=== PATIENT | male | born 1940 | race Caucasian/White ===

== ENCOUNTER 2023-04-26 12:50 | Inpatient (IN) | payer OTHER ==
[~2023-04-26] VITALS: Ht 172.7 cm; Wt 81.6 kg
[2023-04-26 12:50] VITALS: BP_SYST 144; PULSE 124; RESP 24; TEMP 102.1; O2SAT 93
[2023-04-26 13:31] LABS: ABG O2 SAT% ESTIMATE 98.6 % (94.0-100.0); BLOOD GAS HCO3 24.1 mmol/L (21.0-27.0); BLOOD GAS PCO2 30.9 mmHg (32.0-45.0); BLOOD GAS PO2 55.9 mmHg (75.0-100.0)
[2023-04-26 13:32] LABS: ALLEN'S TEST POSITIVE (P)
[2023-04-26 13:41] LABS: BASOPHILS % (AUTO) 0.1 % (0.0-2.0); HEMATOCRIT 35.3 % (36-54); HEMOGLOBIN 11.8 g/dL (14.0-18.0); LYMPHOCYTES # (AUTO) 0.3 K/uL (1.0-5.5); LYMPHOCYTES % (AUTO) 1.8 % (20.5-51.5); MEAN CORPUSCULAR HEMOGLOBIN 29 pg (27-31); MEAN CORPUSCULAR HGB CONC 33 % (32-36); MEAN CORPUSCULAR VOLUME 88 fL (79.0-98.0); MONOCYTES # (AUTO) 0.6 K/uL (0.0-1.0); MONOCYTES % (AUTO) 3.8 % (1.7-9.3); NEUTROPHILS # (AUTO) 15.3 K/uL (1.8-7.7); NEUTROPHILS % (AUTO) 94.3 % (40.0-70.0); PLATELET COUNT (AUTO) 212 K/uL (130-430); RED BLOOD CELL COUNT(AUTO) 4.03 MIL/uL (4.2-6.2); RED CELL DISTRIBUTION WIDTH 13.3 % (9.0-15.0); WHITE BLOOD COUNT (AUTO) 16.2 K/uL (4.8-10.8)
[2023-04-26 13:50] LABS: ANION GAP 11 (5-15); CALCIUM 8.8 mg/dL (8.4-11.0); CARBON DIOXIDE 24 mmol/L (23-29); CHLORIDE 103 mmol/L (98-107); CREATININE 1.37 mg/dL (0.55-1.30); GLUCOSE 159 mg/dL (74-106); POTASSIUM 3.4 mmol/L (3.5-5.1); SODIUM SERUM 138 mmol/L (136-145); UREA NITROGEN, BLOOD 15 mg/dL (8-21)
[2023-04-26 13:54] LABS: INR 1.1 (0.80-1.20); PROTHROMBIN TIME 11.1 SECS (9.5-12.5)
[2023-04-26 14:09] LABS: ALANINE AMINOTRANSFERASE 12 U/L (12-78); ALBUMIN 2.9 g/dL (3.4-4.8); ASPARTATE AMINOTRANSFERASE 14 U/L (10-37); BILIRUBIN,DIRECT 0.3 mg/dL (0.0-0.3); FREE T4 (FREE THYROXINE) 0.8 ng/dL (0.6-1.6); THYROID STIMULATING HORMONE 0.65 uIu/mL (0.34-4.82); TOTAL BILIRUBIN 0.8 mg/dL (0.0-1.0)
[2023-04-26] MEDS: NACL 0.9% 1,000 ML IV ONE (15:00)
[2023-04-26 15:33] LABS: BILIRUBIN,URINE NEGATIVE (NEGATIVE); BLOOD, URINE 2+ (NEGATIVE); CLARITY/URINE CLOUDY (CLEAR); COLOR,URINE YELLOW (YELLOW); GLUCOSE,URINE NEGATIVE (NEGATIVE); KETONES,URINE 1+ (NEGATIVE); LEUKOCYTE ESTERASE ,URINE TRACE (NEGATIVE); NITRITE, URINE NEGATIVE (NEGATIVE); PROTEIN URINE 1+ (NEGATIVE)
[2023-04-26] MEDS: NACL 0.9% 1,000 ML IV SCH (16:00)
[2023-04-26 16:20] LABS: INFLUENZA TYPE A Negative (NEGATIVE); INFLUENZA TYPE B NEGATIVE (NEGATIVE)
[2023-04-26] MEDS ORDERED: IBUP-1971 PO (16:24)
[2023-04-26] MEDS ORDERED: ALBMDI INH (16:24)
[2023-04-26] MEDS ORDERED: LEVO750T64 PO (16:24)
[2023-04-26 16:26] LABS: BACTERIA,URINE FEW /HPF (None Seen); FINE GRANULAR CASTS,URINE 0-10 /LPF (None Seen)
[2023-04-26] MEDS ORDERED: HYDROcodone/ACETAMIN 5-325 MG TAB (NORCO/ VICODIN) PO PRN (16:30)
[2023-04-26] MEDS ORDERED: HYDROcodone/ACETAMIN 10-325 MG TAB PO PRN (16:30)
[2023-04-26] MEDS ORDERED: ONDANSETRON HCL 4 MG/2 ML VIAL IVP PRN (16:30)
[2023-04-26] MEDS ORDERED: MORPHINE 2 MG/ML INJ. SYRINGE IVP PRN (16:30)
[2023-04-26] MEDS: CLINDAMYCIN 600 mg/50mL D5W 50 ML IV ONE (16:34)
[2023-04-26] MEDS ORDERED: ACETAMINOPHEN 325 MG TABLET PO PRN (17:30)
[2023-04-26] MEDS: ACETAMINOPHEN 325 MG TABLET PO PRN (19:52)
[2023-04-26 22:52] VITALS: O2SAT 93
[2023-04-26 23:30] VITALS: BP_SYST 93; PULSE 66; RESP 18; TEMP 98.8; O2SAT 93
[2023-04-27] VITALS: BP_SYST 98; PULSE 59; RESP 16; TEMP 98.1; O2SAT 97
[2023-04-27 07:46] LABS: BASOPHILS % (AUTO) 0.1 % (0.0-2.0); EOSINOPHILS % (AUTO) 0.1 % (0.0-4.0); HEMATOCRIT 26.4 % (36-54); HEMOGLOBIN 8.8 g/dL (14.0-18.0); LYMPHOCYTES # (AUTO) 0.6 K/uL (1.0-5.5); LYMPHOCYTES % (AUTO) 3.5 % (20.5-51.5); MEAN CORPUSCULAR HEMOGLOBIN 29 pg (27-31); MEAN CORPUSCULAR HGB CONC 33 % (32-36); MEAN CORPUSCULAR VOLUME 88 fL (79.0-98.0); MONOCYTES # (AUTO) 1.3 K/uL (0.0-1.0); MONOCYTES % (AUTO) 7.4 % (1.7-9.3); NEUTROPHILS # (AUTO) 15.8 K/uL (1.8-7.7); NEUTROPHILS % (AUTO) 88.9 % (40.0-70.0); PLATELET COUNT (AUTO) 167 K/uL (130-430); RED BLOOD CELL COUNT(AUTO) 3.01 MIL/uL (4.2-6.2); RED CELL DISTRIBUTION WIDTH 13.5 % (9.0-15.0); WHITE BLOOD COUNT (AUTO) 17.7 K/uL (4.8-10.8)
[2023-04-27 08:00] VITALS: BP_SYST 137; PULSE 82; RESP 18; TEMP 98.9; O2SAT 96
[2023-04-27 08:01] LABS: ALANINE AMINOTRANSFERASE 9 U/L (12-78); ALBUMIN 1.7 g/dL (3.4-4.8); ANION GAP 10 (5-15); ASPARTATE AMINOTRANSFERASE 16 U/L (10-37); CARBON DIOXIDE 20 mmol/L (23-29); CHLORIDE 114 mmol/L (98-107); CREATININE 0.94 mg/dL (0.55-1.30); GLUCOSE 78 mg/dL (74-106); SODIUM SERUM 144 mmol/L (136-145); TOTAL BILIRUBIN 0.4 mg/dL (0.0-1.0); TOTAL PROTEIN, SERUM 4.5 g/dL (6.4-8.3); UREA NITROGEN, BLOOD 13 mg/dL (8-21)
[2023-04-27 08:15] VITALS: O2SAT 96
[2023-04-27 08:25] LABS: CALCIUM 6.2 mg/dL (8.4-11.0); POTASSIUM 2.6 mmol/L (3.5-5.1)
[2023-04-27] MEDS: CEFEPIME 1 GM in D5W 50 ML IV SCH (11:36)
[2023-04-27] MEDS: POTASSIUM CHLORIDE 40 MEQ, LIDOCAINE JECT 2% PF 100 MG 50 MG in NS 250 ML IV ONE (11:37)
[2023-04-27 13:46] LABS: ANION GAP 6 (5-15); CALCIUM 7.6 mg/dL (8.4-11.0); CARBON DIOXIDE 27 mmol/L (23-29); CHLORIDE 102 mmol/L (98-107); CREATININE 1.27 mg/dL (0.55-1.30); GLUCOSE 123 mg/dL (74-106); POTASSIUM 3.5 mmol/L (3.5-5.1); SODIUM SERUM 135 mmol/L (136-145); UREA NITROGEN, BLOOD 18 mg/dL (8-21)
[2023-04-27 16:00] VITALS: BP_SYST 122; PULSE 70; RESP 20; TEMP 97.9; O2SAT 95
[2023-04-27 20:20] VITALS: BP_SYST 121; PULSE 64; RESP 18; TEMP 98.4; O2SAT 94
[2023-04-27] MEDS: VANCOMYCIN HCL 1,000 MG in NS 250 ML IV SCH (22:04)
[2023-04-28 01:27] VITALS: BP_SYST 132; PULSE 70; RESP 18; TEMP 99.1; O2SAT 96
[2023-04-28 07:53] LABS: BASOPHILS % (AUTO) 0.1 % (0.0-2.0); EOSINOPHILS # (AUTO) 0.2 K/uL (0.0-0.4); EOSINOPHILS % (AUTO) 1.4 % (0.0-4.0); HEMATOCRIT 33.6 % (36-54); HEMOGLOBIN 11.2 g/dL (14.0-18.0); LYMPHOCYTES # (AUTO) 0.7 K/uL (1.0-5.5); LYMPHOCYTES % (AUTO) 5.2 % (20.5-51.5); MEAN CORPUSCULAR HEMOGLOBIN 29 pg (27-31); MEAN CORPUSCULAR HGB CONC 33 % (32-36); MEAN CORPUSCULAR VOLUME 87 fL (79.0-98.0); MONOCYTES # (AUTO) 1.3 K/uL (0.0-1.0); MONOCYTES % (AUTO) 10.3 % (1.7-9.3); NEUTROPHILS # (AUTO) 10.4 K/uL (1.8-7.7); PLATELET COUNT (AUTO) 223 K/uL (130-430); RED BLOOD CELL COUNT(AUTO) 3.86 MIL/uL (4.2-6.2); RED CELL DISTRIBUTION WIDTH 13.8 % (9.0-15.0); WHITE BLOOD COUNT (AUTO) 12.6 K/uL (4.8-10.8)
[2023-04-28 08:00] VITALS: BP_SYST 126; RESP 16; TEMP 99; O2SAT 95
[2023-04-28 08:13] LABS: ALANINE AMINOTRANSFERASE 14 U/L (12-78); ALBUMIN 2.2 g/dL (3.4-4.8); ANION GAP 9 (5-15); ASPARTATE AMINOTRANSFERASE 27 U/L (10-37); CALCIUM 7.7 mg/dL (8.4-11.0); CARBON DIOXIDE 23 mmol/L (23-29); CHLORIDE 105 mmol/L (98-107); GLUCOSE 98 mg/dL (74-106); POTASSIUM 3.3 mmol/L (3.5-5.1); SODIUM SERUM 137 mmol/L (136-145); TOTAL BILIRUBIN 0.4 mg/dL (0.0-1.0); TOTAL PROTEIN, SERUM 6.2 g/dL (6.4-8.3); UREA NITROGEN, BLOOD 13 mg/dL (8-21)
[2023-04-28 09:24] VITALS: O2SAT 95
[2023-04-28] MEDS ORDERED: SITA100T11 PO (11:37)
[2023-04-28] MEDS ORDERED: AMLO10TA88 PO (11:37)
[2023-04-28] MEDS ORDERED: IRBE300T40 PO (11:37)
[2023-04-28] MEDS ORDERED: METO25TA3 PO (11:37)
[2023-04-28] MEDS ORDERED: LIP40 PO (11:37)
[2023-04-28] MEDS ORDERED: ALBUTEROL MDI INHALATION 8 GM INH INH PRN (14:00)
[2023-04-28] MEDS ORDERED: ALBUTEROL SULFATE 0.083% 2.5 MG/3 ML VIAL.NEB INH PRN (14:15)
[2023-04-28] MEDS: METOPROLOL SUCCINATE 25 MG TAB.SR.24H (TOPROL XL) PO ONE (14:48)
[2023-04-28 15:05] VITALS: BP_SYST 143; PULSE 79; RESP 20; TEMP 97.9; O2SAT 95
[2023-04-28] MEDS ORDERED: DEXTROSE 50% JECT 50 ML DISP.SYRIN IVP PRN (15:45)
[2023-04-28] MEDS ORDERED: GLUCOSE (DEXTROSE) ORAL GEL -Adults PO PRN (15:45)
[2023-04-28] MEDS: POTASSIUM CHLORIDE 20 MEQ TABLET.ER PO ONE (18:26)
[2023-04-28 18:37] VITALS: BP_SYST 132; PULSE 67; RESP 16; TEMP 97.6; O2SAT 93
[2023-04-28 20:00] VITALS: BP_SYST 132; PULSE 67; RESP 18; TEMP 98.8
[2023-04-28] MEDS ORDERED: IRBESARTAN 150 MG TABLET (AVAPRO) PO SCH (21:00)
[2023-04-28] MEDS: LOSARTAN POTASSIUM 50 MG TABLET (COZAAR) PO SCH (21:28)
[2023-04-29 00:03] VITALS: BP_SYST 151; PULSE 69; RESP 18; TEMP 98.1; O2SAT 98
[2023-04-29] MEDS ORDERED: cefTRIAXone 1 GM in D5W 50 ML IV SCH (03:45)
[2023-04-29 08:00] VITALS: BP_SYST 151; PULSE 66; RESP 18; TEMP 98.1; O2SAT 98
[2023-04-29] MEDS: amLODIPine BESYLATE 10 MG TABLET PO SCH (08:55)
[2023-04-29] MEDS: ATORVASTATIN 20 MG TABLET PO SCH (08:56)
[2023-04-29] MEDS: METOPROLOL SUCCINATE 25 MG TAB.SR.24H (TOPROL XL) PO SCH (08:56)
[2023-04-29] MEDS: cefTRIAXone 1 GM in D5W 50 ML IV SCH (09:58)
[2023-04-29 12:00] VITALS: BP_SYST 145; PULSE 65; RESP 16; TEMP 99.1; O2SAT 97
[2023-04-29 12:04] LABS: BASOPHILS % (AUTO) 0.2 % (0.0-2.0); EOSINOPHILS # (AUTO) 0.2 K/uL (0.0-0.4); EOSINOPHILS % (AUTO) 1.8 % (0.0-4.0); HEMATOCRIT 33.5 % (36-54); HEMOGLOBIN 11.3 g/dL (14.0-18.0); LYMPHOCYTES # (AUTO) 0.6 K/uL (1.0-5.5); LYMPHOCYTES % (AUTO) 6.8 % (20.5-51.5); MEAN CORPUSCULAR HEMOGLOBIN 29 pg (27-31); MEAN CORPUSCULAR HGB CONC 34 % (32-36); MEAN CORPUSCULAR VOLUME 87 fL (79.0-98.0); MONOCYTES # (AUTO) 1.1 K/uL (0.0-1.0); MONOCYTES % (AUTO) 12.7 % (1.7-9.3); NEUTROPHILS # (AUTO) 6.9 K/uL (1.8-7.7); NEUTROPHILS % (AUTO) 78.5 % (40.0-70.0); PLATELET COUNT (AUTO) 260 K/uL (130-430); RED BLOOD CELL COUNT(AUTO) 3.87 MIL/uL (4.2-6.2); RED CELL DISTRIBUTION WIDTH 13.7 % (9.0-15.0); WHITE BLOOD COUNT (AUTO) 8.8 K/uL (4.8-10.8)
[2023-04-29 12:18] LABS: ALANINE AMINOTRANSFERASE 23 U/L (12-78); ALBUMIN 2.4 g/dL (3.4-4.8); ANION GAP 9 (5-15); ASPARTATE AMINOTRANSFERASE 23 U/L (10-37); CALCIUM 8.5 mg/dL (8.4-11.0); CARBON DIOXIDE 26 mmol/L (23-29); CHLORIDE 106 mmol/L (98-107); CREATININE 1.21 mg/dL (0.55-1.30); GLUCOSE 90 mg/dL (74-106); POTASSIUM 3.8 mmol/L (3.5-5.1); SODIUM SERUM 141 mmol/L (136-145); TOTAL BILIRUBIN 0.2 mg/dL (0.0-1.0); TOTAL PROTEIN, SERUM 6.3 g/dL (6.4-8.3); UREA NITROGEN, BLOOD 12 mg/dL (8-21)
[2023-04-29 16:00] VITALS: BP_SYST 133; PULSE 59; PULSE 64; RESP 17; TEMP 98.8; O2SAT 100
[2023-04-29 20:00] VITALS: BP_SYST 128; PULSE 62; RESP 18; TEMP 98; O2SAT 99
[2023-04-29] MEDS: INSULIN REGULAR, HUMAN 100 UNITS/ML, 3 ML VIAL (humuLIN R) SUBCUT PRN (20:59)
[2023-04-30] VITALS: BP_SYST 132; PULSE 66; RESP 18; TEMP 98.4; O2SAT 100
[2023-04-30 06:16] LABS: BASOPHILS % (AUTO) 0.5 % (0.0-2.0); EOSINOPHILS # (AUTO) 0.2 K/uL (0.0-0.4); EOSINOPHILS % (AUTO) 2.4 % (0.0-4.0); HEMATOCRIT 31.7 % (36-54); HEMOGLOBIN 10.9 g/dL (14.0-18.0); LYMPHOCYTES # (AUTO) 0.8 K/uL (1.0-5.5); LYMPHOCYTES % (AUTO) 9.4 % (20.5-51.5); MEAN CORPUSCULAR HEMOGLOBIN 30 pg (27-31); MEAN CORPUSCULAR HGB CONC 34 % (32-36); MEAN CORPUSCULAR VOLUME 86 fL (79.0-98.0); MONOCYTES % (AUTO) 12.6 % (1.7-9.3); NEUTROPHILS % (AUTO) 75.1 % (40.0-70.0); PLATELET COUNT (AUTO) 307 K/uL (130-430); RED BLOOD CELL COUNT(AUTO) 3.67 MIL/uL (4.2-6.2); RED CELL DISTRIBUTION WIDTH 13.2 % (9.0-15.0)
[2023-04-30 06:40] LABS: ALANINE AMINOTRANSFERASE 30 U/L (12-78); ALBUMIN 2.3 g/dL (3.4-4.8); ANION GAP 7 (5-15); ASPARTATE AMINOTRANSFERASE 32 U/L (10-37); CALCIUM 7.9 mg/dL (8.4-11.0); CARBON DIOXIDE 25 mmol/L (23-29); CHLORIDE 106 mmol/L (98-107); CREATININE 1.05 mg/dL (0.55-1.30); GLUCOSE 95 mg/dL (74-106); POTASSIUM 3.6 mmol/L (3.5-5.1); SODIUM SERUM 138 mmol/L (136-145); TOTAL BILIRUBIN 0.3 mg/dL (0.0-1.0); TOTAL PROTEIN, SERUM 6.3 g/dL (6.4-8.3); UREA NITROGEN, BLOOD 12 mg/dL (8-21)
[2023-04-30 08:00] VITALS: O2SAT 99
[2023-04-30 09:46] VITALS: BP_SYST 154; PULSE 64; RESP 18; TEMP 98.3; O2SAT 96
[2023-04-30] MEDS ORDERED: AMOX-423 PO (11:11)
[2023-04-30] MEDS ORDERED: DOXY100C5 PO (11:11)
[2023-04-30 11:15] VITALS: BP_SYST 154; PULSE 64; RESP 18; TEMP 98.3; O2SAT 96
== END 2023-04-30 23:54 | disposition home or self-care (01) | DRG 871 ==
LOC: SED 12:50 → STU 16:22 → SMU 04-29 15:02
PROVIDERS: ADMIT Family Medicine; ATTEND Family Medicine
PROC: 05HY33Z Insertion of Infusion Device into Upper Vein, Percutaneous Approach (ICD-10-PCS; principal; 2023-04-27)
PROC: B54MZZA Ultrasonography of Right Upper Extremity Veins, Guidance (ICD-10-PCS; 2023-04-27)
DX: A41.9 Sepsis, unspecified organism (principal); G93.41 Metabolic encephalopathy; L03.113 Cellulitis of right upper limb; L03.114 Cellulitis of left upper limb; N17.9 Acute kidney failure, unspecified; E44.1 Mild protein-calorie malnutrition; D64.9 Anemia, unspecified; E78.00 Pure hypercholesterolemia, unspecified; E87.6 Hypokalemia; Z20.822 Contact with and (suspected) exposure to COVID-19; Z68.27 Body mass index [BMI] 27.0-27.9, adult
CPT/HCPCS: 36415; 36600; 70450-TC; 71045; 76376; 80048; 80053; 80076; 81000; 81001; 81015; 82140; 82800-TC; 82803; 82948; 83605; 84439; 84443; 84484; 85025; 85610; 85730; 87040; 87086; 93005; 93306; 93971; 97110-GP; 97112-GP; 97116-GP; 97530-GP; 99285; G0378; J0692; J0696; J1815; J3370; J3480; J3490; J7050; J7060